=== PATIENT | female | born 1970 | race American Indian/Alaskan Native ===

== ENCOUNTER 2018-09-03 18:07 | Emergency (ER) | payer OTHER ==
--- NOTE | 2018-09-03 18:18 | Emergency Department Report ---
Chief Complaint: Back Pain/Injury Stated Complaint: RT LEG NUMB/PAIN Time Seen by Provider: 09/03/18 18:16 - HPI History of Present Illness: woke up Wed AM stood and pain shot down leg co foot being numb no back pain no dysuria no incontinence no s/s cauda equina worse when sitting in car driving pos straight leg raise. MSE COMPLETED MSE screening note: Focused history and physical exam performed. Due to findings the following was ordered: ED Disposition for MSE Condition: Stable
--- NOTE | 2018-09-03 23:53 | Emergency Department Report ---
ED Back Pain/Injury HPI - General Chief Complaint: Back Pain/Injury Stated Complaint: RT LEG NUMB/PAIN Time Seen by Provider: 09/03/18 18:16 Source: patient, family Mode of arrival: Ambulatory Limitations: No Limitations - History of Present Illness Initial Comments: This is a 48-year-old female here report right side hip pain without any injury and this is radiating down her leg and making her foot numb. She denies any history of back pain. Pain is 8 out of 10 and achy crampy with tingling. Denies any nausea vomiting or back pain. Denies any urinary burning frequency urgency or abdominal pain. Denies any fever or chills. Denies any vaginal bleeding or discharge and she has a history of hysterectomy. No medication taken prior to coming to the emergency room MD Complaint: other (musculoskeletal right lower extremity without any injuries) Onset/Timin -: days(s) Similar Symptoms Previously: No Place: home Radiation: right leg Severity: severe Severity scale (0 -10): 8 Quality: burning, aching Consistency: constant Improves With: none Worsens With: movement Associated Symptoms: numbness (right foot), difficulty walking. denies: confusion, weakness, chest pain, cough, difficulty urinating, diaphoresis, i ncontinence, fever/chills, constipation, headaches, abdominal pain, loss of appetite, malaise, nausea/vomiting, rash, seizure, shortness of breath, syncope - Related Data Previous Rx's Medication Instructions Recorded Last Taken Type Acetaminophen/Codeine 1 tab PO Q6H PRN #20 tab 09/14/14 Unknown Rx [Acetaminophen-Codeine #3 TAB] Naproxen [Naprosyn] 500 mg PO BID #60 tablet 09/14/14 Unknown Rx methOCARBAMOL [Robaxin] 500 mg PO BID #60 tab 09/14/14 Unknown Rx Ibuprofen [Motrin] 800 mg PO Q8HR PRN #12 tablet 09/04/18 Unknown Rx cephALEXin [Keflex] 500 mg PO Q12HR 7 Days #14 cap 09/04/18 Unknown Rx traMADol [Ultram 50 MG tab] 50 mg PO Q6HR PRN #12 tablet 09/04/18 Unknown Rx Allergies Allergy/AdvReac Type Severity Reaction Status Date / Time No Known Allergies Allergy Verified 09/03/18 18:09 ED Review of Systems ROS: Stated complaint: RT LEG NUMB/PAIN Other details as noted in HPI Constitutional: denies: chills, fever ENT: denies: throat pain, congestion Respiratory: denies: cough, shortness of breath, wheezing Cardiovascular: denies: chest pain, palpitations, dyspnea on exertion, edema, syncope Gastrointestinal: denies: abdominal pain, nausea, vomiting, diarrhea, constipation Musculoskeletal: arthralgia. denies: back pain, joint swelling, myalgia Skin: denies: rash Neurological: numbness, paresthesias, abnormal gait. denies: headache, weakness, confusion, vertigo ED Past Medical Hx - Past Medical History Previous Medical History?: Yes Hx Congestive Heart Failure: Yes - Surgical History Past Surgical History?: Yes Additional Surgical History: hysterectomy for fibroids - Family History Family history: hypertension - Social History Smoking Status: Never Smoker Substance Use Type: None - Medications Home Medications: Home Medications Medication Instructions Recorded Confirmed Last Taken Type Acetaminophen/Codeine 1 tab PO Q6H PRN #20 tab 09/14/14 Unknown Rx [Acetaminophen-Codeine #3 TAB] Naproxen [Naprosyn] 500 mg PO BID #60 tablet 09/14/14 Unknown Rx methOCARBAMOL [Robaxin] 500 mg PO BID #60 tab 09/14/14 Unknown Rx Ibuprofen [Motrin] 800 mg PO Q8HR PRN #12 tablet 09/04/18 Unknown Rx cephALEXin [Keflex] 500 mg PO Q12HR 7 Days #14 cap 09/04/18 Unknown Rx traMADol [Ultram 50 MG tab] 50 mg PO Q6HR PRN #12 tablet 09/04/18 Unknown Rx ED Physical Exam - General Limitations: No Limitations General appearance: alert, in no apparent distress - Head Head exam: Present: atraumatic, normocephalic, normal inspection - Eye Eye exam: Present: normal appearance, PERRL, EOMI Pupils: Present: normal accommodation - ENT ENT exam: Present: normal exam, normal orophraynx, mucous membranes moist - Neck Neck exam: Present: normal inspection, full ROM, other (normal exam and no C- spine tenderness). Absent: tenderness, lymphadenopathy - Respiratory Respiratory exam: Present: normal lung sounds bilaterally. Absent: respiratory distress, chest wall tenderness - Cardiovascular Cardiovascular Exam: Present: regular rate, normal rhythm, normal heart sounds - GI/Abdominal GI/Abdominal exam: Present: soft, normal bowel sounds. Absent: distended, tenderness, guarding, rebound, rigid, organomegaly, mass - Extremities Exam Extremities exam: Present: normal inspection, normal capillary refill, other (ambulates with limp to the right side). Absent: full ROM (limited limited range of motion to right hip due to complaints of pain.), tenderness, pedal edema, joint swelling, calf tenderness - Expanded Lower Extremity Exam Right Hip exam: Present: normal inspection, pelvic stability. Absent: full ROM (limited range of motion), tenderness, swelling, abrasion, laceration, ecchymosis, deformity, crepidus, dislocation, erythema, external rotation, internal rotation, shortening Upper Leg exam: Present: normal inspection, full ROM. Absent: tenderness, swelling, abrasion, laceration, ecchymosis, deformity, crepidus, dislocation, erythema Knee exam: Present: normal inspection, full ROM, full knee extension. Absent: tenderness, swelling, abrasion, laceration, ecchymosis, deformity, crepidus, dislocation, erythema, effusion, pain w/ pronation/supination, posterior draw sign, pain/laxity with valgus, pain/laxity with varus Lower Leg exam: Present: normal inspection, full ROM. Absent: tenderness, swelling, abrasion, laceration, ecchymosis, deformity, crepidus, dislocation, erythema, palpable cord, Suze's sign Ankle exam: Present: normal inspection, full ROM. Absent: tenderness, swelling, abrasion, laceration, ecchymosis, deformity, crepidus, dislocation, erythema Foot/Toe exam: Present: normal inspection, full ROM. Absent: tenderness, swelling, abrasion, laceration, ecchymosis, deformity, crepidus, dislocation, erythema, amputation, puncture wound, foreign body, calcaneal tenderness, tenderness at base of 5th metatarsal, nail avulsion, subungual hematoma Neuro vascular tendon exam: Present: no vascular compromise. Absent: pulse deficit, abnormal cap refill, motor deficit, sensory deficit, tendon deficit, extremity cold to touch, pallor, decreased fine/light touch, foot drop, peroneal nerve deficit, significant pain with passive ROM of distal joint Gait: Positive: antalgic - Back Exam Back exam: Present: normal inspection, full ROM, other (ambulates with limp to the right side). Absent: tenderness, CVA tenderness (R), CVA tenderness (L), muscle spasm, paraspinal tenderness, vertebral tenderness, rash noted - Neurological Exam Neurological exam: Present: alert, oriented X3, abnormal gait (ambulates with limp into the right side), reflexes normal. Absent: motor sensory deficit - Psychiatric Psychiatric exam: Present: normal affect, normal mood - Skin Skin exam: Present: warm, dry, intact, normal color. Absent: rash ED Course Vital Signs 09/03/18 09/04/18 18:16 03:19 Temperature 98.3 F 98 F Pulse Rate 83 74 Respiratory 18 16 Rate Blood Pressure 131/81 Blood Pressure 122/68 [Left] O2 Sat by Pulse 99 100 Oximetry - Reevaluation(s) Reevaluation #1: 09/04/18 01:58 Patient given Decadron 10 mg IM and Toradol 60 mg IM in the emergency room she said helped her pain. Urinalysis positive for urinary tract infection and still awaiting CT scan of the lumbar spine and also x-ray of right hip ED Medical Decision Making - Lab Data Lab Results 09/04/18 Range/Units Unknown Urine Color Yellow (Yellow) Urine Turbidity Cloudy (Clear) Urine pH 5.0 (5.0-7.0) Ur Specific Edgar 1.018 (1.003-1.030) Urine Protein <15 mg/dl (Negative) mg/dL Urine Glucose (UA) Neg (Negative) mg/dL Urine Ketones Neg (Negative) mg/dL Urine Blood Neg (Negative) Urine Nitrite Neg (Negative) Urine Bilirubin Neg (Negative) Urine Urobilinogen < 2.0 (<2.0) mg/dL Ur Leukocyte Esterase Mod (Negative) Urine WBC (Auto) 18.0 H (0.0-6.0) /HPF Urine RBC (Auto) 10.0 (0.0-6.0) /HPF U Epithel Cells (Auto) 9.0 (0-13.0) /HPF Urine Bacteria (Auto) 2+ (Negative) /HPF Urine Mucus Few /HPF Urine culture sent - Radiology Data Radiology results: report reviewed CT scan of the lumbar spine without contrast dictated by radiologist's report reviewed by myself and no acute abnormality. Patient also had x-ray of right hip. No acute findings seen on x-ray for left hip. Findings [facility] [address] [place] [address] Cat Scan Report Signed Patient: MELQUIADES ARDON MR#: [id number] : 1970 Acct:[id number] Age/Sex: 48 / F ADM Date: 09/03/18 Loc: ED Attending Dr: Ordering Physician: AUGUST MALHOTRA Date of Service: 09/04/18 Procedure(s): CT lumbar spine wo con Accession Number(s): [id number] cc: AUGUST MALHOTRA FINAL REPORT PROCEDURE: CT LUMBAR SPINE WO CON TECHNIQUE: Computerized axial tomography of the lumbar spine was performed from T12 to the sacrum without contrast material. HISTORY: right lumbar radiculopathy COMPARISON: No prior studies are available for comparison. FINDINGS: L1-2: No significant abnormality. L2-3: No significant abnormality. L3-4: No significant abnormality. L4-5: No significant abnormality. L5-S1: No significant abnormality. Other: None. IMPRESSION: No significant abnormality Transcribed By: [facility] Dictated By: ISAIAH GOMEZ MD Electronically Authenticated By: ISAIAH GOMEZ MD Signed Date/Time: 09/04/18156 DD/ 5 TD/TT: 09/04/18155 - Medical Decision Making This is a 48-year-old female here reporting that she is having right hip pain radiated down her right foot and making a right foot number. She had CT scan of lumbar spine without contrast which shows no acute abnormality. X-ray of right hip shows no abnormalities and her physical exam was normal except she had pain with range of motion to her right hip. Patient urinalysis shows that she has urinary tract infection and cultures sent. She was given Decadron and Toradol in the emergency room which she said helped her pain. I discussed the patient her diagnosis, lab results and CT scan and x-ray reports that she was understanding. I discussed with her she continues to have numbness in her foot this radiation from her hip that she needs to follow up with orthopedic doctor and probably a neurologist. Patient is stable in no acute distress. She was also given Keflex to start treatment for urinary tract infection and discharged home in stable condition, pain control, vital signs stable and she is afebrile and give her a prescription for Keflex, Motrin and Ultram. - Differential Diagnosis FX, subluxation, dislocation, UTI, musculoskeletal pain, DDD Critical care attestation.: If time is entered above; I have spent that time in minutes in the direct care of this critically ill patient, excluding procedure time. ED Disposition Clinical Impression: Acute cystitis without hematuria, Pain of right lower extremity, Paresthesia and pain of right extremity Disposition: DC-01 TO HOME OR SELFCARE Is pt being admited?: No Does the pt Need Aspirin: No Condition: Stable Instructions: Urinary Tract Infection in Women (ED), Paresthesia (ED), Arthralgia (ED) Additional Instructions: Please follow up with orthopedic doctor and if he is still having some numbness in your right foot you need to follow up with neurologist. Please see referrals on discharge instruction paperwork Take Keflex for urinary tract infection and he will need to have a repeat urine test in 7 days at your primary care doctor's office. Take Motrin for mild to moderate pain Take Ultram for severe pain but please do not drive or operate heavy machinery while taking this medication as it causes drowsiness If he condition worsens, return to the emergency room Prescriptions: cephALEXin [Keflex] 500 mg PO Q12HR 7 Days #14 cap Ibuprofen [Motrin] 800 mg PO Q8HR PRN #12 tablet PRN Reason: mild to moderate pain traMADol [Ultram 50 MG tab] 50 mg PO Q6HR PRN #12 tablet PRN Reason: severe pain Referrals: [facility] MD VERO [Primary Care Provider] - 09/07/18 GREGOR ORTEGA MD [Staff Physician] - 3-5 Days LAURA PELAYO MD [Staff Physician] - 3-5 Days Forms: Work/School Release Form(ED)
[2018-09-04] MEDS ORDERED: TORADOL IM ONE (00:45)
[2018-09-04] MEDS ORDERED: DECADRON IM STA (00:45)
[2018-09-04 01:40] LABS: Bacteria,Urine 2+ /HPF (Negative); Bilirubin,Urine NEG (Negative); Blood,Urine NEG (Negative); Color,Urine Yellow (Yellow); Mucus,Urine FEW /HPF; Protein,Urine <15 mg/dL mg/dL (Negative); Urobilinogen,Urine < 2.0 mg/dL (<2.0)
--- NOTE | 2018-09-04 01:57 | Cat Scan Report ---
FINAL REPORT PROCEDURE: CT LUMBAR SPINE WO CON TECHNIQUE: Computerized axial tomography of the lumbar spine was performed from T12 to the sacrum wi thout contrast material. HISTORY: right lumbar radiculopathy COMPARISON: No prior studies are available for comparison. FINDINGS: L1-2: No significant abnormality. L2-3: No significant abnormality. L3-4: No significant abnormality. L4-5: No significant abnormality. L5-S1: No significant abnormality. Other: None. IMPRESSION: No significant abnormality
[2018-09-04 03:20] VITALS: BP 122/68
--- NOTE | 2018-09-04 09:04 | XRay Report ---
FINAL REPORT EXAM: XR HIP 2-3V RT HISTORY: right hip pain TECHNIQUE: AP pelvis and lateral view of left hip PRIORS: None. FINDINGS: There is no fracture seen. There is no dislocation. There is no acute bony lesion identified. IMPRESSION: There is no acute abnormality identified.
== END 2018-09-04 03:22 | disposition home or self-care (01) ==
LOC: ED 18:07
DX: N30.00 Acute cystitis without hematuria (principal); M79.604 Pain in right leg; R20.2 Paresthesia of skin; Z90.710 Acquired absence of both cervix and uterus; I50.9 Heart failure, unspecified; Z79.899 Other long term (current) drug therapy
CPT/HCPCS: 72131; 73502; 81001; 87086; 96372; 99284; J1100; J1885